=== PATIENT | female | born 1985 | race Caucasian/White ===

== ENCOUNTER 2018-06-22 03:46 | Inpatient (IN) | payer MEDICAID ==
[~2018-06-22] VITALS: Ht 167.6 cm; Wt 108.9 kg
[2018-06-22 03:51] VITALS: Ht 167.6 cm; Wt 108.9 kg
[2018-06-22 04:49] LABS: UA SPECIFIC GRAVITY >=1.030 (1.005-1.035); microscopic required? YES; urine erythrocyte 2+ (NEGATIVE)
[2018-06-22 04:50] LABS: PLATELET COUNT 215 x10^3mcL (130-400); RED CELL DISTRIBUTION WIDTH 12.7 % (11.5-14.5)
[2018-06-22 05:15] LABS: CALCIUM 8.6 mg/dL (8.5-10.1); CARBON DIOXIDE 28.7 mmol/L (21-32); CHLORIDE SERUM 104 mmol/L (98-107); CREATININE SERUM 0.7 mg/dL (0.6-1.0); GFR1 > 60 mL/min; GLUCOSE SERUM 104 mg/dL (74-106); POTASSIUM SERUM 4.2 mmol/L (3.5-5.1); SODIUM SERUM 137 mmol/L (136-145)
[2018-06-22 05:19] LABS: ALBUMIN 3.4 g/dL (3.4-5.0); ALKALINE PHOSPHATASE 79 U/L (46-116); ALT/SGPT 25 U/L (14-59); AST/SGOT 12 U/L (15-37); BILIRUBIN TOTAL 0.48 mg/dL (0.20-1.00); LIPASE 140 IU/L (73-393); TOTAL PROTEIN, SERUM 7.9 g/dL (6.4-8.2)
[2018-06-22 10:22] LABS: T3 TOTAL 1.81 ng/mL
[2018-06-22 10:48] VITALS: BP 100/48
[2018-06-22 12:49] LABS: FREE T4 0.76 ng/dL (0.76-1.46); FREE THYROXINE INDEX 2.7 ug/dL (1.4-4.5); T4(THYROXINE) 11.3 ug/dL (4.7-13.3)
[2018-06-22 13:51] LABS: PHOSPHOROUS 4.2 mg/dL (2.5-4.9)
[2018-06-22 16:44] VITALS: BP 121/61
[2018-06-22 21:36] VITALS: BP 114/48
[2018-06-22 21:41] VITALS: BP 110/64
[2018-06-23 05:28] VITALS: BP 107/49
[2018-06-23 06:53] LABS: CALCIUM 8.9 mg/dL (8.5-10.1); CARBON DIOXIDE 23.3 mmol/L (21-32); CHLORIDE SERUM 103 mmol/L (98-107); CREATININE SERUM 0.7 mg/dL (0.6-1.0); GFR1 > 60 mL/min; GLUCOSE SERUM 83 mg/dL (74-106); POTASSIUM SERUM 3.4 mmol/L (3.5-5.1); SODIUM SERUM 137 mmol/L (136-145)
[2018-06-23 07:25] LABS: BASOPHIL % 0.4 % (0-2); PLATELET COUNT 205 x10^3mcL (130-400); RED CELL DISTRIBUTION WIDTH 12.9 % (11.5-14.5)
[2018-06-23 09:56] VITALS: BP 111/50
[2018-06-23 16:16] VITALS: BP 105/68
[2018-06-23 20:22] VITALS: BP 123/76
[2018-06-24 05:21] VITALS: BP 145/100
[2018-06-24 06:36] LABS: BASOPHIL % 0.4 % (0-2); PLATELET COUNT 184 x10^3mcL (130-400); RED CELL DISTRIBUTION WIDTH 12.7 % (11.5-14.5)
[2018-06-24 06:40] LABS: CALCIUM 8.3 mg/dL (8.5-10.1); CARBON DIOXIDE 24.7 mmol/L (21-32); CHLORIDE SERUM 108 mmol/L (98-107); CREATININE SERUM 0.6 mg/dL (0.6-1.0); GFR1 > 60 mL/min; GLUCOSE SERUM 78 mg/dL (74-106); POTASSIUM SERUM 3.7 mmol/L (3.5-5.1); SODIUM SERUM 143 mmol/L (136-145)
[2018-06-24 10:35] VITALS: BP 112/61
[2018-06-24 18:40] VITALS: BP 127/50
[2018-06-24 20:45] VITALS: BP 104/50
[2018-06-25 05:02] VITALS: BP 108/62
[2018-06-25 06:15] LABS: BASOPHIL % 0.7 % (0-2); PLATELET COUNT 199 x10^3mcL (130-400); RED CELL DISTRIBUTION WIDTH 12.7 % (11.5-14.5)
[2018-06-25 06:23] LABS: CALCIUM 8.2 mg/dL (8.5-10.1); CARBON DIOXIDE 23.3 mmol/L (21-32); CHLORIDE SERUM 104 mmol/L (98-107); CREATININE SERUM 0.6 mg/dL (0.6-1.0); GFR1 > 60 mL/min; GLUCOSE SERUM 80 mg/dL (74-106); POTASSIUM SERUM 3.5 mmol/L (3.5-5.1); SODIUM SERUM 136 mmol/L (136-145)
[2018-06-25 08:14] VITALS: BP 96/40
[2018-06-25 11:03] VITALS: BP 100/60
[2018-06-25 21:41] VITALS: BP 116/58
[2018-06-26 04:42] VITALS: BP 96/41
[2018-06-26 06:39] LABS: BASOPHIL % 0.2 % (0-2); PLATELET COUNT 197 x10^3mcL (130-400); RED CELL DISTRIBUTION WIDTH 12.9 % (11.5-14.5)
[2018-06-26 07:00] LABS: CALCIUM 8.7 mg/dL (8.5-10.1); CARBON DIOXIDE 24.4 mmol/L (21-32); CHLORIDE SERUM 102 mmol/L (98-107); CREATININE SERUM 0.6 mg/dL (0.6-1.0); GFR1 > 60 mL/min; GLUCOSE SERUM 85 mg/dL (74-106); POTASSIUM SERUM 3.7 mmol/L (3.5-5.1); SODIUM SERUM 135 mmol/L (136-145)
[2018-06-26 08:30] VITALS: BP 105/50
[2018-06-26 16:41] VITALS: BP 129/63
[2018-06-26 21:19] VITALS: BP 106/49
[2018-06-27 04:53] VITALS: BP 106/53
[2018-06-27 07:13] LABS: CALCIUM 8.7 mg/dL (8.5-10.1); CARBON DIOXIDE 26.6 mmol/L (21-32); CHLORIDE SERUM 102 mmol/L (98-107); CREATININE SERUM 0.6 mg/dL (0.6-1.0); GFR1 > 60 mL/min; GLUCOSE SERUM 85 mg/dL (74-106); POTASSIUM SERUM 3.7 mmol/L (3.5-5.1); SODIUM SERUM 135 mmol/L (136-145)
[2018-06-27 07:19] LABS: BASOPHIL % 0.4 % (0-2); PLATELET COUNT 215 x10^3mcL (130-400); RED CELL DISTRIBUTION WIDTH 12.8 % (11.5-14.5)
[2018-06-27 09:26] VITALS: BP 108/62
[2018-06-27] MEDS ORDERED: TYL325 PO (14:45)
[2018-06-27 15:00] VITALS: BP 108/62
== END 2018-06-27 16:18 | disposition home or self-care (01) | DRG 234 ==
LOC: ED 03:46 → MU 09:33
PROVIDERS: Emergency Medicine; Family Medicine; Internal Medicine; Surgery
PROC: 0DTJ0ZZ Resection of Appendix, Open Approach (ICD-10-PCS; principal; 2018-06-25 14:45)
DX: R10.31 Right lower quadrant pain (principal); N17.0 Acute kidney failure with tubular necrosis; O23.42 Unspecified infection of urinary tract in pregnancy, second trimester; E87.6 Hypokalemia; Z3A.13 13 weeks gestation of pregnancy; B96.29 Other Escherichia coli [E. coli] as the cause of diseases classified elsewhere; R80.9 Proteinuria, unspecified; N28.89 Other specified disorders of kidney and ureter
CPT/HCPCS: 84439; 94150; J0696; J2270; J2274; J2405; J2543; J3010; J3490; J7030; J7120; Q0092